=== PATIENT | female | born 1970 | race Asian ===

== ENCOUNTER 2020-10-13 20:39 | Observation (INO) | payer OTHER ==
[~2020-10-13] VITALS: Ht 165.1 cm; Wt 45.4 kg
[2020-10-13] MEDS ORDERED: DIVA125 PO (20:57)
[2020-10-13] MEDS ORDERED: Norco 10-325 T1 EACH PO (20:57)
[2020-10-13] MEDS ORDERED: PRED20 PO (20:58)
[2020-10-13] MEDS ORDERED: DOXY100 PO (20:58)
[2020-10-13 22:25] LABS: Valproic Acid 91.9 ug/mL (50.0-100.0)
[2020-10-13 22:53] LABS: BASOPHILS ABSOLUTE AUTO 0.01 K/mm3 (0.00-0.23); BASOPHILS PERCENT AUTO 0 % (0-2); EOSINOPHILS PERCENT AUTO 0 % (0-6); Hematocrit 37.9 % (33.0-51.0); Hemoglobin 12.9 g/dL (11.5-16.0); IMMATURE GRAN ABSOLUTE AUTO 0.16 K/mm3 (0.00-0.10); IMMATURE GRAN PERCENT AUTO 1 % (0-1); LYMPHOCYTES ABSOLUTE AUTO 0.84 K/mm3 (0.84-5.20); LYMPHOCYTES PERCENT AUTO 7 % (21-46); MONOCYTES ABSOLUTE AUTO 0.22 K/mm3 (0.16-1.47); MONOCYTES PERCENT AUTO 2 % (4-13); Mean Corpuscular HGB 32.6 pg (26.0-34.0); Mean Corpuscular Volume 96 fL (80-100); Mean Platelet Volume 10.6 fL (9.1-12.4); NEUTROPHILS ABSOLUTE AUTO 10.67 K/mm3 (1.96-9.15); NEUTROPHILS PERCENT AUTO 90 % (41-73); Platelet Count 137 K/mm3 (150-400); RDW Coefficient Variation 13.7 % (11.7-14.2); RDW Standard Deviation 48.8 fL (35.1-46.3); Red Blood Cell Count 3.96 M/mm3 (3.80-5.20)
[2020-10-13 23:05] LABS: Alanine Aminotransfer (ALT/SGP 67 U/L (12-78); Albumin, Blood 3.1 g/dL (3.4-5.0); Albumin/Globulin Ratio 1.1 (0.8-1.8); Alk Phos 29 U/L (50-136); Anion Gap 5 mmol/L (6-16); Aspartate Aminotrans (AST/SGOT 24 U/L (12-37); Bilirubin, Total 0.3 mg/dL (0.1-1.0); Blood Urea Nitrogen 13 mg/dL (8-24); CO2, Blood 32 mmol/L (21-32); Calcium, Blood 8.5 mg/dL (8.5-10.1); Chloride, Blood 103 mmol/L (98-108); Creatinine, Blood 0.65 mg/dL (0.40-1.00); Globulin, Blood 2.8 g/dL (2.2-4.0); Glomerular Filtration Rate >60 (60-); Glucose, Blood 155 mg/dL (70-99); Potassium, Blood 3.8 mmol/L (3.5-5.5); Sodium, Blood 140 mmol/L (136-145); Total Protein, Blood 5.9 g/dL (6.4-8.2)
[2020-10-13 23:29] LABS: Source, Urine Clean Catch
[2020-10-13 23:37] LABS: Bilirubin, Urine Neg (Neg); Blood, Urine Neg (Neg); Glucose Qualitative, Urine Neg (Neg); Ketones, Urine 1+ (Neg); Leukocyte Esterase, Urine Neg (Neg); Nitrite, Urine Neg (Neg); Protein, Urine Neg (Neg); Urobilinogen, Urine NORM (Normal)
[2020-10-13 23:38] LABS: Appearance, Urine Clear (Clear); Color, Urine Yellow (P-Yellow)
--- NOTE | 2020-10-14 08:30 | NUR ---
UPDATE ASSUMED CARE OF PT FROM ER NURSE. PT ALERT AND ORIENTED TO SELF, PLACE, AND FAMILY. MENTATION IS ALTERED AND SPEECH IS NONSENSICAL. VS STABLE. O2 SATS REMAIN ABOVE 90% ON RA. BP STABLE. HR NSR. PT AND SPOUSE ORIENTED TO UNIT. NS INFUSING PER ORDERS. WILL CONTINUE TO MONITOR CLOSELY.
--- NOTE | 2020-10-14 13:30 | NUR ---
UPDATE STATUS CHANGED TO MEDICAL WITHOUT TELEMETRY. REPORT CALLED TO MEDICAL FLOOR RN. PT'S SPOUSE KRISTINA UPDATED ON ROOM CHANGE. PT TO BE TAKEN UP BY BED.
--- NOTE | 2020-10-14 19:27 | NUR ---
SHIFT SUMMARY PT IS CONFUSED. PT KNOWS NAME BUT DOES NOT ALWAYS STATE CORRECTLY. PT IS IMPULSIVE AND WILL GET OUT OF BED W/O CALLING. FIANCE IS STAYING THE NIGHT TO ASSIST IN KEEPING PT SAFE. PT IS IN THE PROCESS OF RECEIVING 1.5L OF NS. CM ACTIVELY WORKING ON GET PT SEEN IN [facility]. SHIFT REPORT GIVEN TO MILITARY COMMUNICATIONS SPECIALIST NURSE.
--- NOTE | 2020-10-15 04:09 | NUR ---
PATIENT VERY CONFUSED AND AGITATED IN THE EARLY EVENING. fIANCE STAYED UP WITH PATIENT PATIENT VERY IMPULSIVE. AROUND 2200 PATIENT WENT TO SLEEP AND WOKE UP ONLY ONCE AND TRIED TO GET OOB FORGETTING IV POLE TO USE BATHROOM. NO COMPLAINTS OR SIGNS OF DISCOMFORT NOTED. SHE DOES GO THROUGH MOMENTS OF BEING COMPLETELY LUCID. VERY SAD ABOUT LIKELIHOOD OF HER LOSING HER POSITION [facility]
[2020-10-15] MEDS ORDERED: LEVE500 PO (12:03)
--- NOTE | 2020-10-15 14:29 | NUR ---
DISCHARGE NOTE PT KNEW NAME AND THIS MORING. WAS ABLE TO MAKE SOME NEEDS KNONW BUT WAS STILL IMPULSIVE. NO SEIZURES WERE NOTED OR REPORTED BY CM. PT WAS EXCITED TO GO HOME BUT DID HAVE SOME ANXIETY. PT REQUESTED XANAX BEFORE LEAVING, SPOKE WITH CHARGE NURSE AND XANAX WAS GIVEN. CM TOOK BELONGS TO VEHICLE AND ROLLER SKATE REPAIRER TOOK PT DOWN AFTER IV WAS REMOVED. BEFORE LEAVING REVIEWED DC PACKET WITH PT AND CM. PT AND CM THANKED STAFF FOR TAKING CARE OF THEM.
== END 2020-10-15 13:45 | disposition home or self-care (01) ==
LOC: ER 20:39 → EDBD 20:39 → ERHOLD 20:40 → ICUE 10-14 02:30 → ER 10-14 02:30 → ERHOLD 10-14 02:30 → ICUE 10-14 07:50 → MEDS 10-14 13:35 → ICUE 10-14 13:35 → MEDS 10-14 21:59
PROVIDERS: Student in an Organized Health Care Education/Training Program; ADMIT Internal Medicine
DX: G93.40 Encephalopathy, unspecified (principal); R56.9 Unspecified convulsions; Z79.899 Other long term (current) drug therapy; Z91.040 Latex allergy status
CPT/HCPCS: 70450; 71045; 80053; 80164; 81003; 82947; 83605; 85025; 93005; 93010; 96360; 96372; 99285-25; A9270; G0378; J1650; J1953; J2060; J3010; J7030; J7512